=== PATIENT | male | born 1980 | race Caucasian/White ===

== ENCOUNTER 2018-02-17 20:22 | Emergency (ER) | payer SELFPAY ==
[2018-02-17] MEDS: IBUPROFEN 800 MG TABLET. PO (21:57)
[2018-02-17] MEDS: HYDROcodone/APAP 7.5/325MG 1 TAB TABLET PO (21:57)
[2018-02-17 22:13] LABS: ADD MAN DIFF? NO
[2018-02-17 22:15] LABS: BASO # 0.1 x10^3/uL (0.0-0.2); BASO % 1 % (0-3); EOS # 0.3 x10^3/uL (0.0-0.7); EOS % 3 % (0-3); HEMATOCRIT 42.6 % (39.0-53.0); HEMOGLOBIN 15.1 g/dL (13.0-17.5); LYMPH # 2.9 x10^3/uL (1.0-4.8); LYMPH % 28 % (24-48); MEAN CORPUSCULAR HEMOGLOBIN 34 pg (25-35); MEAN CORPUSCULAR HGB CONC 36 g/dL (31-37); MEAN CORPUSCULAR VOLUME 96 fL (79-100); MONO # 0.5 x10^3/uL (0.0-1.1); MONO % 5 % (0-9); NEUT # 6.5 x10^3uL (1.8-7.7); NEUT % 63 % (31-73); PLATELET COUNT 183 x10^3/uL (140-400); RED BLOOD COUNT 4.46 x10^6/uL (4.30-5.70); WHITE BLOOD COUNT 10.2 x10^3/uL (4.0-11.0)
[2018-02-17 22:26] LABS: TROPONIN BY ISTAT 0.01 ng/ml (<0.08)
[2018-02-17 22:28] LABS: ANION GAP 7 (6-14); BLOOD UREA NITROGEN 18 mg/dL (8-26); CALCIUM 9.1 mg/dL (8.5-10.1); CARBON DIOXIDE 27 mmol/L (21-32); CHLORIDE 106 mmol/L (98-107); CREATININE 1.1 mg/dL (0.7-1.3); GFR 74.9; GLUCOSE 128 mg/dL (70-99); POTASSIUM 4.1 mmol/L (3.5-5.1); SODIUM 140 mmol/L (136-145)
[2018-02-17 22:34] LABS: BILIRUBIN,URINE NEGATIVE (NEG); CLARITY,URINE CLEAR; COLOR,URINE YELLOW; GLUCOSE,URINE NEGATIVE (NEG); NITRITE,URINE NEGATIVE (NEG); PROTEIN,URINE NEGATIVE (NEG-TRACE)
[2018-02-17 22:41] LABS: AMORPHOUS SEDIMENT,UR PRESENT /HPF; BACTERIA,URINE 0 /HPF (0-FEW); RBC,URINE 0 /HPF (0-2); WBC,URINE 0 /HPF (0-4)
== END 2018-02-17 22:39 | disposition left against medical advice (07) ==
LOC: ER 20:22
DX: R03.0 Elevated blood-pressure reading, without diagnosis of hypertension (principal); R06.02 Shortness of breath; R42 Dizziness and giddiness; Z88.5 Allergy status to narcotic agent; Z88.8 Allergy status to other drugs, medicaments and biological substances
CPT/HCPCS: 36415; 71046; 80048; 81001; 84484; 85025; 93005; 99285-25

== ENCOUNTER 2018-02-26 19:35 | Emergency (ER) | payer SELFPAY ==
[2018-02-26 20:25] LABS: ADD MAN DIFF? NO
[2018-02-26 20:29] LABS: BASO # 0.1 x10^3/uL (0.0-0.2); BASO % 1 % (0-3); EOS # 0.4 x10^3/uL (0.0-0.7); EOS % 4 % (0-3); HEMATOCRIT 41.5 % (39.0-53.0); HEMOGLOBIN 14.1 g/dL (13.0-17.5); LYMPH % 18 % (24-48); MEAN CORPUSCULAR HEMOGLOBIN 33 pg (25-35); MEAN CORPUSCULAR HGB CONC 34 g/dL (31-37); MEAN CORPUSCULAR VOLUME 97 fL (79-100); MONO # 0.8 x10^3/uL (0.0-1.1); MONO % 7 % (0-9); NEUT % 71 % (31-73); PLATELET COUNT 164 x10^3/uL (140-400); RED BLOOD COUNT 4.29 x10^6/uL (4.30-5.70); RED CELL DISTRIBUTION WIDTH 13.4 % (11.5-14.5); WHITE BLOOD COUNT 11.2 x10^3/uL (4.0-11.0)
[2018-02-26 20:39] LABS: ANION GAP 6 (6-14); BLOOD UREA NITROGEN 16 mg/dL (8-26); BUN/CREATININE RATIO 18 (6-20); CALCIUM 8.7 mg/dL (8.5-10.1); CARBON DIOXIDE 25 mmol/L (21-32); CHLORIDE 106 mmol/L (98-107); CREATININE 0.9 mg/dL (0.7-1.3); GFR 94.4; GLUCOSE 111 mg/dL (70-99); POTASSIUM 3.4 mmol/L (3.5-5.1); SODIUM 137 mmol/L (136-145)
[2018-02-26 20:46] LABS: ALBUMIN 3.8 g/dL (3.4-5.0); ALBUMIN/GLOBULIN RATIO 1.1 (1.0-1.7); ALK PHOS 88 U/L (46-116); ALT (SGPT) 18 U/L (16-63); AST (SGOT) 12 U/L (15-37); TOTAL BILIRUBIN 0.6 mg/dL (0.2-1.0); TOTAL PROTEIN 7.2 g/dL (6.4-8.2)
[2018-02-26 20:51] LABS: AMPHETAMINE/METHAMPHETAMINE NEG (NEG); BARBITURATES NEG (NEG); BENZODIAZEPINES POS (NEG); CANNABINOIDS NEG (NEG); COCAINE NEG (NEG); ETHANOL, URINE NEG (NEG); METHADONE NEG (NEG); OPIATES POS (NEG); PHENCYCLIDINE NEG (NEG)
[2018-02-26] MEDS: fentaNYL PF VIAL 100 MCG/2 ML VIAL IV (20:57)
[2018-02-26] MEDS: CLINDAMYCIN 900MG PREMIX 50 ML IV (20:58)
[2018-02-26 20:59] LABS: LACTIC ACID 2.2 mmol/L (0.4-2.0)
== END 2018-02-26 21:52 | disposition home or self-care (01) ==
LOC: ER 19:35
DX: L03.116 Cellulitis of left lower limb (principal); F12.10 Cannabis abuse, uncomplicated; Z88.6 Allergy status to analgesic agent; Z88.8 Allergy status to other drugs, medicaments and biological substances
CPT/HCPCS: 36415; 80053; 80307; 83605; 85025; 96365; 96375; 99284-25; J3010; J3490

== ENCOUNTER 2018-02-27 19:54 | Emergency (ER) | payer SELFPAY | END 2018-02-27 20:52 | disposition home or self-care (01) | LOC: ER 19:54 | DX: S80.862A Insect bite (nonvenomous), left lower leg, initial encounter (principal); L03.116 Cellulitis of left lower limb; F15.10 Other stimulant abuse, uncomplicated; Z88.5 Allergy status to narcotic agent; Z88.8 Allergy status to other drugs, medicaments and biological substances; W57.XXXA Bitten or stung by nonvenomous insect and other nonvenomous arthropods, initial encounter; Y93.89 Activity, other specified; Y92.89 Other specified places as the place of occurrence of the external cause; Y99.8 Other external cause status | CPT/HCPCS: 99283 ==

== ENCOUNTER 2018-05-28 17:56 | Emergency (ER) | payer BC ==
[~2018-05-28] VITALS: Ht 175.3 cm; Wt 83.9 kg
[~2018-05-28 17:56] MED LIST: ALPR0.25 PO; CEPH-264 PO; DICL50TA4 PO; HYDR-971 PO; MUPI15CR TP; SULF1TAB24 PO
[2018-05-28 18:06] VITALS: BP 154/95
--- NOTE | 2018-05-28 18:14 | PHYS DOC ---
Past Medical History Past Medical History: Other Additional Past Medical Histor: influenza a Past Surgical History: No Surgical History Additional Past Surgical Histo: left knee x 2 Alcohol Use: None Drug Use: Cocaine, Methamphetamine Adult General Chief Complaint Chief Complaint: INSECT BITE HPI HPI Patient is a 37 year old M who presents with abscess and redness to LLQ of abdomen. Patient reports this started about 3 days ago. He denies n/v or fever. He reports he poked the area with a needle and today has had quite a bit of drainage. Review of Systems Review of Systems Constitutional: Denies fever or chills [] GI: Denies abdominal pain, nausea, vomiting Musculoskeletal: Denies back pain or joint pain [] Integument: Abscess with surrounding redness to LLQ of abdomen Neurologic: Denies focal weakness or sensory changes [] All other systems were reviewed and found to be within normal limits, except as documented in this note. Current Medications Current Medications Current Medications Medications (Trade) Dose Ordered Sig/Libra Start Time Stop Time Status Last Admin Dose Admin Clindamycin HCl (Cleocin) 450 mg 1X ONCE 05/28/18 18:15 05/28/18 18:16 DC 05/28/18 18:19 450 MG Morphine Sulfate (Morphine Sulfate) 8 mg 1X ONCE 05/28/18 18:15 05/28/18 18:16 DC 05/28/18 18:18 8 MG Ondansetron HCl (Zofran Odt) 4 mg 1X ONCE 05/28/18 18:15 05/28/18 18:16 DC 05/28/18 18:19 4 MG Allergies Allergies Allergies Coded Allergies Type Severity Reaction Last Updated Verified fluoxetine Allergy Intermediate suicidal thoughts 09/08/14 No cyclobenzaprine Adverse Reaction Intermediate "makes me angry" 09/08/14 No ketorolac Adverse Reaction Intermediate "makes me angry" 09/08/14 No tramadol Adverse Reaction Intermediate "makes me angry" 09/08/14 No Physical Exam Physical Exam Constitutional: Well developed, well nourished, no acute distress, non-toxic appearance. [] HENT: Normocephalic, atraumatic Eyes: PERRLA, EOMI, conjunctiva normal, no discharge. [] Neck: Normal range of motion, no tenderness, supple, no stridor. [] Cardiovascular:Heart rate regular rhythm, no murmur [] Lungs & Thorax: Bilateral breath sounds clear to auscultation [] Skin: Warm, dry. Abscess with mild induration and surrounding erythema, warmth to touch to left lower quadrant of abdominal wall. Draining freely. Neurologic: Alert and oriented X 3, normal motor function, normal sensory function, no focal deficits noted. [] Psychologic: Affect normal, judgement normal, mood normal. [] Current Patient Data Vital Signs Vital Signs Date Time Temp Pulse Resp B/P (MAP) Pulse Ox O2 Delivery O2 Flow Rate FiO2 05/28/18 18:06 98.4 89 18 154/95 (114) 98 Room Air 98.4 EKG EKG [] Radiology/Procedures Radiology/Procedures [] Course & Med Decision Making Course & Med Decision Making Pertinent Labs and Imaging studies reviewed. (See chart for details) No need for additional incision. Wound is draining freely at this time. Mild induration does not suggest deep, loculated wound. Plan: warm compresses, clindamycin rx, lortab rx, f/u with PCP, return precautions reviewed, wound edges marked. Dragon Disclaimer Dragon Disclaimer This electronic medical record was generated, in whole or in part, using a voice recognition dictation system. Departure Departure Impression: Primary Impression: Cellulitis of left abdominal wall Additional Impression: Abscess of abdominal wall Disposition: 01 HOME, SELF-CARE Condition: STABLE Referrals: NO PCP (PCP) Patient Instructions: Abscess, Care After, Cellulitis Scripts Hydrocodone/Apap 5-325 (NORCO 5-325 TABLET) 1 Each Tablet 1-2 TAB PO PRN Q6HRS PRN for PAIN, #20 TAB 0 Refills Prov: JACK VIZCAINO APRN 05/28/18 Clindamycin Hcl (CLINDAMYCIN HCL) 150 Mg Capsule 3 CAP PO TID for 10 Days, #90 CAP Prov: JACK VIZCAINO APRN 05/28/18 Problem Qualifiers JACK VIZCAINO APRN May 28, 2018 18:14
[2018-05-28] MEDS ORDERED: CLINDAMYCIN HCL 150 MG CAPSULE. PO ONE (18:15)
[2018-05-28] MEDS ORDERED: MORPHINE SULFATE 10 MG/ML VIAL. IM ONE (18:15)
[2018-05-28] MEDS ORDERED: ONDANSETRON ODT 4 MG TAB.RAPDIS. PO ONE (18:15)
[2018-05-28] MEDS ORDERED: CLIN150C14 PO (18:18)
[2018-05-28] MEDS ORDERED: HYDR-971 PO (18:18)
== END 2018-05-28 18:32 | disposition home or self-care (01) ==
LOC: ER 17:56
DX: L02.211 Cutaneous abscess of abdominal wall (principal); L03.311 Cellulitis of abdominal wall; Z88.5 Allergy status to narcotic agent; Z88.8 Allergy status to other drugs, medicaments and biological substances
CPT/HCPCS: 96372; 99283; J2270; Q0162

== ENCOUNTER 2019-01-20 14:08 | Emergency (ER) | payer BC, SELFPAY ==
[~2019-01-20] VITALS: Ht 170.2 cm; Wt 83.9 kg
[~2019-01-20 14:08] MED LIST changes: +CLIN150C14 PO; +HYDR-3164 PO; -HYDR-971 PO
[2019-01-20 14:36] VITALS: BP 144/86
--- NOTE | 2019-01-20 14:39 | PHYS DOC ---
Past Medical History Past Medical History: Other Additional Past Medical Histor: influenza a Past Surgical History: No Surgical History Additional Past Surgical Histo: left knee x 2 Smoking: Cigarettes, Less than 1pk/day Alcohol Use: None Drug Use: Cocaine, Methamphetamine Adult General Chief Complaint Chief Complaint: UPPER EXTREMITY PAIN HPI HPI Patient is a 38 year old who presents shoulder pain has been ongoing for year. He followed up with orthopedic doctor and they wanted to get a MRI but the patient was unable for the MRI. The patient states that it is in the left shoulder and his range of motion is continuing to reduce in that shoulder. Has been taking Tylenol and ibuprofen at home and states that is not working. Rates his pain 10 out of 10 states it throbs. Review of Systems Review of Systems Constitutional: Denies fever or chills [] Eyes: Denies change in visual acuity, redness, or eye pain [] HENT: Denies nasal congestion or sore throat [] Respiratory: Denies cough or shortness of breath [] Cardiovascular: No additional information not addressed in HPI [] GI: Denies abdominal pain, nausea, vomiting, bloody stools or diarrhea [] : Denies dysuria or hematuria [] Musculoskeletal: Denies back pain or joint pain with exception L shoulder. Integument: Denies rash or skin lesions [] Neurologic: Denies headache, focal weakness or sensory changes [] Endocrine: Denies polyuria or polydipsia [] Complete systems were reviewed and found to be within normal limits, except as documented in this note. Current Medications Current Medications Current Medications Medications (Trade) Dose Ordered Sig/Libra Start Time Stop Time Status Last Admin Dose Admin Acetaminophen/ Hydrocodone Bitart (Lortab 5/325) 1 tab 1X ONCE 01/20/19 14:45 01/20/19 14:46 Allergies Allergies Allergies Coded Allergies Type Severity Reaction Last Updated Verified fluoxetine Allergy Intermediate suicidal thoughts 09/08/14 No cyclobenzaprine Adverse Reaction Intermediate "makes me angry" 09/08/14 No ketorolac Adverse Reaction Intermediate "makes me angry" 09/08/14 No tramadol Adverse Reaction Intermediate "makes me angry" 09/08/14 No Physical Exam Physical Exam Constitutional: Well developed, well nourished, no acute distress, non-toxic appearance. [] HENT: Normocephalic, atraumatic, bilateral external ears normal, oropharynx moist, no oral exudates, nose normal. [] Eyes: PERRLA, EOMI, conjunctiva normal, no discharge. [] Neck: Normal range of motion, no tenderness, supple, no stridor. [] Cardiovascular:Heart rate regular rhythm, no murmur [] Lungs & Thorax: Bilateral breath sounds clear to auscultation [] Abdomen: Bowel sounds normal, soft, no tenderness, no masses, no pulsatile masses. [] Skin: Warm, dry, no erythema, no rash. [] Back: No tenderness, no CVA tenderness. [] Extremities: No tenderness, no cyanosis, no clubbing, ROM intact, no edema. With exception of L arm, ROM is reduced. Neurologic: Alert and oriented X 3, normal motor function, normal sensory function, no focal deficits noted. [] Psychologic: Affect normal, judgement normal, mood normal. [] EKG EKG [] Radiology/Procedures Radiology/Procedures [] Course & Med Decision Making Course & Med Decision Making Pertinent Labs and Imaging studies reviewed. (See chart for details) Offered patient xray of shoulder and he declined. Will refer him to Orthopedics and discharge the patient home. Dragon Disclaimer Dragon Disclaimer This electronic medical record was generated, in whole or in part, using a voice recognition dictation system. Departure Departure Impression: Primary Impression: Shoulder pain Disposition: 01 HOME, SELF-CARE Condition: STABLE Referrals: NO PCP (PCP) ARIELLE SIMPSON II, MD Additional Instructions: Please follow up with Orthopedics. Problem Qualifiers Primary Impression: Shoulder pain Chronicity: acute Laterality: left Qualified Codes: M25.512 - Pain in left shoulder CALI CHAPPELL LAYOUT ARTIST January 20, 2019 14:39
[2019-01-20] MEDS ORDERED: HYDROcodone/APAP 5/325MG 1 TAB TABLET PO ONE (14:45)
== END 2019-01-20 15:01 | disposition home or self-care (01) ==
LOC: ER 14:08
DX: M25.512 Pain in left shoulder (principal); F17.210 Nicotine dependence, cigarettes, uncomplicated; Z88.8 Allergy status to other drugs, medicaments and biological substances; Z88.5 Allergy status to narcotic agent
CPT/HCPCS: 99282

== ENCOUNTER 2021-03-04 17:59 | Inpatient (IN) | payer OTHER ==
[~2021-03-04] VITALS: Ht 182.9 cm; Wt 89.8 kg
[~2021-03-04 17:59] MED LIST changes: -CLIN150C14 PO; +CLIN150C15 PO; +HYDR-2761 PO
[2021-03-04] MEDS ORDERED: VECURONIUM BOLUS 10 MG VIAL. IV ONE (19:00)
[2021-03-04] MEDS ORDERED: methylPREDNISolone SOD SUCC PF 125 MG/2 ML VIAL. IV ONE (19:00)
[2021-03-04] MEDS ORDERED: NALOXONE 0.4 MG/ML VIAL. IV ONE (19:00)
[2021-03-04 19:06] LABS: BASE EXCESS ABG -9 mmol/L (-3-3); HCO3 ABG 23 mmol/L (21-28); PO2 ABG 365 mmHg (75-108); SAT O2 ABG 99 % (92-99)
[2021-03-04 19:12] LABS: FIO2 ABG 8L; PCO2 ABG 75 mmHg (35-46)
[2021-03-04 20:21] LABS: BASO % 0 % (0-3); EOS % 0 % (0-3); HEMATOCRIT 44.6 % (39.0-53.0); HEMOGLOBIN 15.2 g/dL (13.0-17.5); LYMPH # 1.8 x10^3/uL (1.0-4.8); LYMPH % 21 % (24-48); MEAN CORPUSCULAR HEMOGLOBIN 33 pg (25-35); MEAN CORPUSCULAR HGB CONC 34 g/dL (31-37); MEAN CORPUSCULAR VOLUME 96 fL (79-100); MONO # 0.7 x10^3/uL (0.0-1.1); MONO % 8 % (0-9); NEUT # 6.3 x10^3/uL (1.8-7.7); NEUT % 71 % (31-73); PLATELET COUNT 90 x10^3/uL (140-400); RED BLOOD COUNT 4.64 x10^6/uL (4.30-5.70); RED CELL DISTRIBUTION WIDTH 13.9 % (11.5-14.5); WHITE BLOOD COUNT 8.9 x10^3/uL (4.0-11.0)
[2021-03-04 20:30] LABS: DIRECT BILIRUBIN 0.3 mg/dL (0.0-0.2); MAGNESIUM 2.4 mg/dL (1.8-2.4); PHOSPHORUS 2.4 mg/dL (2.6-4.7); TOTAL BILIRUBIN 0.8 mg/dL (0.2-1.0); TOTAL PROTEIN 5.6 g/dL (6.4-8.2)
[2021-03-04 21:19] LABS: BILIRUBIN,URINE NEGATIVE (NEG); CLARITY,URINE TURBID; COLOR,URINE YELLOW; NITRITE,URINE NEGATIVE (NEG); PH,URINE 5.5 (<5.0-8.0); PROTEIN,URINE 30 mg/dL (NEG-TRACE); UROBILINOGEN,URINE 0.2 mg/dL (0.2 mg/dL)
[2021-03-04] MEDS: IV DEXTROSE 5% 1,000 ML IV SCH (21:33)
[2021-03-04 21:36] LABS: BACTERIA,URINE FEW /HPF (0-FEW); RBC,URINE OCC /HPF (0-2)
[2021-03-04 21:37] LABS: GRANULAR CASTS,URINE FEW /HPF; HYALINE CASTS, URINE FEW /HPF
[2021-03-04] MEDS ORDERED: DESMOPRESSIN 4 MCG/ML AMPUL. IV ONE ×2 (22:30)
[2021-03-04] MEDS ORDERED: LABETALOL 20 MG/4 ML DISP.SYRIN. IVP ONE (22:30)
[2021-03-05 00:29] LABS: HEMATOCRIT 42.8 % (39.0-53.0); HEMOGLOBIN 14.5 g/dL (13.0-17.5); RED BLOOD COUNT 4.43 x10^6/uL (4.30-5.70); RED CELL DISTRIBUTION WIDTH 14.3 % (11.5-14.5); WHITE BLOOD COUNT 8.6 x10^3/uL (4.0-11.0)
[2021-03-05 01:04] LABS: ALBUMIN 2.7 g/dL (3.4-5.0); DIRECT BILIRUBIN 0.2 mg/dL (0.0-0.2); MAGNESIUM 2.3 mg/dL (1.8-2.4); PHOSPHORUS 2.8 mg/dL (2.6-4.7); PROTHROMBIN TIME PATIENT 15.4 SEC (11.7-14.0); TOTAL BILIRUBIN 0.5 mg/dL (0.2-1.0); TOTAL PROTEIN 5.5 g/dL (6.4-8.2)
--- NOTE | 2021-03-05 01:21 | RAD ---
INDICATION: Reason: post-bronchoscopy / Spl. Instructions: / History: COMPARISON: March 03, 2021 FINDINGS: Single view of chest obtained. Endotracheal tube near thoracic inlet. Right-sided vascular catheter with tip projecting over the SVC . Enteric tube is seen coursing below the diaphragm. Cardiac silhouette is not enlarged. Mild hazy opacities bilaterally appear slightly decreased from prior IMPRESSION: * Lines and tubes as above. * Slight decrease in the multifocal opacities throughout the bilateral lungs compared to prior exami [facility], [place]. Electronically signed by: Larry Ware MD (03/05/2021 1:19 AM) [id number]
[2021-03-05 06:48] LABS: HEMATOCRIT 38.9 % (39.0-53.0); HEMOGLOBIN 13.2 g/dL (13.0-17.5); RED BLOOD COUNT 4.07 x10^6/uL (4.30-5.70); WHITE BLOOD COUNT 8.5 x10^3/uL (4.0-11.0)
[2021-03-05 07:04] LABS: PROTHROMBIN TIME PATIENT 15.9 SEC (11.7-14.0)
[2021-03-05 07:31] LABS: ALBUMIN 2.5 g/dL (3.4-5.0); DIRECT BILIRUBIN 0.2 mg/dL (0.0-0.2); MAGNESIUM 2.2 mg/dL (1.8-2.4); PHOSPHORUS 1.6 mg/dL (2.6-4.7); TOTAL BILIRUBIN 0.6 mg/dL (0.2-1.0)
[2021-03-05] MEDS ORDERED: LABETALOL 20 MG/4 ML DISP.SYRIN. IVP ONE (07:45)
[2021-03-05 08:12] LABS: CALCIUM 8.5 mg/dL (8.5-10.1); CREATININE 1.2 mg/dL (0.7-1.3); GFR 66.7
[2021-03-05] MEDS ORDERED: PIPERACILLIN/TAZOBACTAM 3.375 GM in IV NORMAL SALINE 50ML 50 ML IV ONE (08:30)
--- NOTE | 2021-03-05 09:47 | EKG ---
[facility] [address] [place] [address] Test Date: 2021-03-05 Test Time: 09:44:17 Pat Name: JEAN MARIE NICHOLE Department: Room: 107 1 Gender: M Leacher: CHUCK : 1980 Requested By: [place] [employer] Order Number: [id number] Reading MD: Measurements Intervals [place] Rate: 102 P: 71 [place]: 122 QRS: 79 QRSD: 88 T: 49 QT: 312 QTc: 411 Interpretive Statements SINUS TACHYCARDIA OTHERWISE NORMAL ECG RI6.02 Compared to ECG 03/03/2021 04:55:58 No significant changes
[2021-03-05] MEDS ORDERED: INSULIN LISPRO 300 UNITS/3 ML VIAL. SQ ONE (12:00)
[2021-03-05] MEDS: PIPERACILLIN/TAZOBACTAM 3.375 GM in IV NORMAL SALINE 50ML 50 ML IV SCH ×3 (12:02→23:51)
[2021-03-05 12:12] LABS: BASO % 0 % (0-3); EOS % 0 % (0-3); HEMATOCRIT 38.5 % (39.0-53.0); HEMOGLOBIN 13.1 g/dL (13.0-17.5); LYMPH # 0.9 x10^3/uL (1.0-4.8); LYMPH % 10 % (24-48); MEAN CORPUSCULAR HEMOGLOBIN 33 pg (25-35); MEAN CORPUSCULAR HGB CONC 34 g/dL (31-37); MEAN CORPUSCULAR VOLUME 96 fL (79-100); MONO # 0.3 x10^3/uL (0.0-1.1); MONO % 4 % (0-9); NEUT # 8.3 x10^3/uL (1.8-7.7); NEUT % 87 % (31-73); PLATELET COUNT 86 x10^3/uL (140-400); RED BLOOD COUNT 4.02 x10^6/uL (4.30-5.70); RED CELL DISTRIBUTION WIDTH 13.7 % (11.5-14.5); WHITE BLOOD COUNT 9.6 x10^3/uL (4.0-11.0)
[2021-03-05 12:22] LABS: PROTHROMBIN TIME PATIENT 15.2 SEC (11.7-14.0)
--- NOTE | 2021-03-05 12:26 | RAD ---
Exam Date: 03/05/2021 11:36 AM XR CHEST 1V Indication: Reason: Vent, pre-op organ harvesting / Spl. Instructions: / History: . Comparison: March 04, 2021 FINDINGS/ IMPRESSION: Support lines and tubes remain in place. The cardiac silhouette and pulmonary vasculature are within normal limits. There is no focal consolidation, pleural effusion or pneumothorax. The visualized osseous structures are intact. Electronically signed by: Clay Rubio MD (03/05/2021 12:24 PM) [facility]
[2021-03-05 12:33] LABS: ALBUMIN 2.6 g/dL (3.4-5.0); DIRECT BILIRUBIN 0.2 mg/dL (0.0-0.2); MAGNESIUM 2.3 mg/dL (1.8-2.4); PHOSPHORUS 2.2 mg/dL (2.6-4.7); TOTAL BILIRUBIN 0.6 mg/dL (0.2-1.0); TOTAL PROTEIN 5.2 g/dL (6.4-8.2)
[2021-03-05] MEDS ORDERED: HEPARIN for ARTERIAL LINE 1,500 ML ONE (13:50)
[2021-03-05] MEDS ORDERED: IODIXANOL 320 MG/ML 100 ML VIAL. ONE (13:50)
[2021-03-05] MEDS ORDERED: LIDOCAINE 1% PF 2 ML VIAL. ONE (13:50)
[2021-03-05] MEDS ORDERED: VERAPAMIL 5 MG/2 ML VIAL. ONE (14:00)
[2021-03-05] MEDS ORDERED: LIDOCAINE 1% Multi-Dose 20 ML VIAL. ONE (14:36)
--- NOTE | 2021-03-05 15:29 | CARD ---
MR#: [id number] Date of Study: 03/05/2021 Ordering Physician: YEN BAKER, Referring Physician: Idania HENSON: Fady Nino [facility] APPROVED REPORT EXAM: Two-dimensional and M-mode echocardiogram with Doppler and color Doppler. Other Information Quality : FairHR: 100bpm Rhythm : NSR INDICATION Transplant donor evaluation RISK FACTORS Polysubstance abuse LEFT VENTRICLE The left ventricle is normal size. There is normal left ventricular wall thickness. The left ventricu lar systolic function is normal and the ejection fraction is within normal range. EF 55% There is nor mal LV segmental wall motion. Transmitral Doppler flow pattern is Grade I-abnormal relaxation pattern . No left ventricle thrombus noted on this study. There is no ventricular septal defect visualized. T here is no left ventricular aneurysm. There is no mass noted in the left ventricle. RIGHT VENTRICLE The right ventricle is normal size. There is normal right ventricular wall thickness. The right ventr icular systolic function is normal. ATRIA The left atrium size is normal. The right atrium size is normal. The interatrial septum is intact wit h no evidence for an atrial septal defect or patent foramen ovale as noted on 2-D or Doppler imaging. AORTIC VALVE The aortic valve is normal in structure and function. Doppler and Color Flow revealed no significant aortic regurgitation. There is no significant aortic valvular stenosis. There is no aortic valvular v egetation. MITRAL VALVE The mitral valve is normal in structure and function. There is no evidence of mitral valve prolapse. There is no mitral valve stenosis. Doppler and Color Flow revealed no mitral valve regurgitation note d. TRICUSPID VALVE The tricuspid valve is normal in structure and function. Doppler and Color Flow revealed trace tricus pid regurgitation. There is no tricuspid valve prolapse or vegetation. There is no tricuspid valve st enosis. PULMONIC VALVE Doppler and Color Flow revealed no pulmonic valvular regurgitation. There is no pulmonic valvular adelita nosis. GREAT VESSELS The aortic root is normal in size. The ascending aorta is normal in size. The IVC is normal in size a nd collapses >50% with inspiration. PERICARDIAL EFFUSION There is no pleural effusion. There is no evidence of significant pericardial effusion. Critical Notification Critical Value: No <Conclusion> The left ventricular systolic function is normal and the ejection fraction is within normal range. EF 55% There is normal LV segmental wall motion. Transmitral Doppler flow pattern is Grade I-abnormal relaxation pattern. No significant valvular disease. Signed by : Graham Peters, Electronically Approved : 03/05/2021 15:28:48
[2021-03-05] MEDS ORDERED: IODIXANOL 320 MG/ML 100 ML VIAL. IART ONE (15:30)
[2021-03-05] MEDS ORDERED: LIDOCAINE 1% Multi-Dose 20 ML VIAL. INJ ONE (15:30)
--- NOTE | 2021-03-05 15:51 | CARD ---
MR#: [id number] Date of Study: 03/05/2021 Ordering Physician: ROCIO PETERS, Referring Physician: ROCIO PETERS, Tech: Sylvie Washington RT(R)() APPROVED REPORT Technologist: Sylvie Washington RT(R)() Nurse: Zohreh Suazo RN Procedure(s) performed: FLUORO TIME: 6.3 MIN DOSE: 34 Gycm2 Contrast: 86ml LHC, Coronary angiography, Left ventriculogram RHC PROCEDURE NARRATIVE Clinical information: 40-year-old male [facility] was obtained by the transplant network to the patient's family. Procedure details: The left groin was prepped and draped in usual sterile fashion. Under 1% lidocaine local anesthesia a 6 [place] sheath was placed in the left common femoral artery via the modified Seldinger technique. Next a 8 [place] sheath was placed in the left common femoral vein. Next diagnostic angiography was performed with a 6 [place] JL4 and JR4 catheters. Left ventricular end-diastolic pressure was obtaine d with a pigtail catheter and a pullback was performed after left ventriculography. A 7.5 [place] PA catheter was advanced to the right heart chambers and pressures and saturations and cardiac outputs w ere obtained. At case completion all catheters and wires were removed and hemostasis was achieved in the left groin via an Angio-Seal device for the left common femoral artery and manual compression fo r the left common femoral vein. No acute complications are noted. Findings: Hemodynamics: RA 12 mmHg RV 45/5/11 PA 42/17/30 Wedge 16 mmHg Left and right PA saturation 91%, RV saturation 91% FA saturation 99% Brendan cardiac output: Calculated at 20 L/min likely overestimated due to patient being on high flow ox ygen with 100% FiO2 Thermodilution cardiac output: 10 L/min LVEDP 17 mmHg No LV to aortic pullback gradient Left ventriculogram: EF 55% without any significant wall motion abnormalities and no evidence of aort ic or mitral insufficiency. Coronary angiography: Left main is a very short caliber vessel without any significant disease with near separate ostia of the LAD and circumflex LAD is a moderate caliber vessel with normal angiographic appearance Left circumflex is a large caliber dominant vessel with normal angiographic appearance L PDA is a small to moderate caliber vessel with normal angiographic appearance RCA is a small caliber nondominant vessel with normal angiographic appearance Conclusion 1. Mildly elevated biventricular filling pressures 2. Mild pulmonary hypertension, mean PA 30 mmHg, PVR WNL 3. High cardiac output 4. Normal LV systolic function, EF 55% 5. Normal angiographic appearance of the coronary arteries in a left dominant system Recommendations Per [place] transplant network. Signed by : Rocio Peters, Electronically Approved : 03/05/2021 15:50:45
[2021-03-05] MEDS ORDERED: NORMAL SALINE IV ONE (16:15)
[2021-03-05] MEDS ORDERED: DESMOPRESSIN IV ONE (16:15)
[2021-03-05] MEDS ORDERED: DESMOPRESSIN 4 MCG/ML AMPUL. IV ONE (16:30)
[2021-03-05] MEDS: IV DEXTROSE 5% 1,000 ML IV SCH ×2 (16:49→20:20)
[2021-03-05] MEDS ORDERED: VANCOMYCIN 1 GM in IV NORMAL SALINE 250ML 250 ML IV ONE (17:00)
[2021-03-05 17:06] LABS: ISTAT BE VENOUS -1 mmol/L (0-3); ISTAT HCO3 VEN 25 mmol/L (24-28); ISTAT PCO2 VEN 46 mmHg (41-51); ISTAT PH VEN 7.34 (7.32-7.42); ISTAT PO2 VEN 209 mmHg (20-40); ISTAT SAT O2 VEN 100 %; ISTAT TCO2 VEN 26 mmol/L (21-32)
[2021-03-05 17:57] LABS: BASO % 0 % (0-3); EOS % 0 % (0-3); HEMATOCRIT 33.5 % (39.0-53.0); HEMOGLOBIN 11.3 g/dL (13.0-17.5); LYMPH % 13 % (24-48); MEAN CORPUSCULAR HEMOGLOBIN 32 pg (25-35); MEAN CORPUSCULAR HGB CONC 34 g/dL (31-37); MEAN CORPUSCULAR VOLUME 96 fL (79-100); MONO # 0.4 x10^3/uL (0.0-1.1); MONO % 5 % (0-9); NEUT # 6.4 x10^3/uL (1.8-7.7); NEUT % 82 % (31-73); PLATELET COUNT 73 x10^3/uL (140-400); WHITE BLOOD COUNT 7.8 x10^3/uL (4.0-11.0)
[2021-03-05 18:09] LABS: PROTHROMBIN TIME PATIENT 15.2 SEC (11.7-14.0)
[2021-03-05 18:14] LABS: ALBUMIN 2.4 g/dL (3.4-5.0); DIRECT BILIRUBIN 0.2 mg/dL (0.0-0.2); MAGNESIUM 2.4 mg/dL (1.8-2.4); PHOSPHORUS 1.4 mg/dL (2.6-4.7); TOTAL BILIRUBIN 0.7 mg/dL (0.2-1.0); TOTAL PROTEIN 4.8 g/dL (6.4-8.2)
[2021-03-05] MEDS ORDERED: ALBUMIN HUMAN 25% 100 ML IV ONE (20:00)
[2021-03-05] MEDS: POTASSIUM PHOS,M-BASIC-D-BASIC 10 MMOL in IV NORMAL SALINE 100ML 100 ML IV SCH ×4 (20:13→23:45)
[2021-03-05] MEDS ORDERED: FUROSEMIDE 40 MG/4 ML VIAL. IVP ONE (22:00)
[2021-03-05] MEDS ORDERED: hydrALAZINE 20 MG/ML VIAL. IVP ONE (23:30)
[2021-03-06 00:08] LABS: BASO % 0 % (0-3); EOS % 0 % (0-3); HEMATOCRIT 33.2 % (39.0-53.0); HEMOGLOBIN 11.4 g/dL (13.0-17.5); LYMPH # 0.8 x10^3/uL (1.0-4.8); LYMPH % 8 % (24-48); MEAN CORPUSCULAR HEMOGLOBIN 33 pg (25-35); MEAN CORPUSCULAR HGB CONC 34 g/dL (31-37); MEAN CORPUSCULAR VOLUME 95 fL (79-100); MONO # 0.2 x10^3/uL (0.0-1.1); MONO % 3 % (0-9); NEUT # 8.6 x10^3/uL (1.8-7.7); NEUT % 89 % (31-73); PLATELET COUNT 76 x10^3/uL (140-400); RED CELL DISTRIBUTION WIDTH 13.9 % (11.5-14.5); WHITE BLOOD COUNT 9.6 x10^3/uL (4.0-11.0)
[2021-03-06 00:23] LABS: ALBUMIN 2.9 g/dL (3.4-5.0); DIRECT BILIRUBIN 0.2 mg/dL (0.0-0.2); PHOSPHORUS 2.6 mg/dL (2.6-4.7); TOTAL BILIRUBIN 0.6 mg/dL (0.2-1.0); TOTAL PROTEIN 6.1 g/dL (6.4-8.2)
[2021-03-06 00:24] LABS: PROTHROMBIN TIME PATIENT 14.7 SEC (11.7-14.0)
[2021-03-06] MEDS ORDERED: ALBUMIN HUMAN 5% 500 ML IV ONE (01:45)
[2021-03-06 02:06] LABS: HEMOGLOBIN A1C 5.3 % (4.8-5.6)
[2021-03-06] MEDS ORDERED: LABETALOL 20 MG/4 ML DISP.SYRIN. IVP ONE (03:15)
[2021-03-06] MEDS ORDERED: hydrALAZINE 20 MG/ML VIAL. IVP ONE (04:45)
[2021-03-06 06:08] LABS: BASO % 0 % (0-3); EOS % 0 % (0-3); HEMATOCRIT 30.9 % (39.0-53.0); HEMOGLOBIN 10.5 g/dL (13.0-17.5); LYMPH # 0.8 x10^3/uL (1.0-4.8); LYMPH % 9 % (24-48); MEAN CORPUSCULAR HEMOGLOBIN 33 pg (25-35); MEAN CORPUSCULAR HGB CONC 34 g/dL (31-37); MEAN CORPUSCULAR VOLUME 96 fL (79-100); MONO # 0.3 x10^3/uL (0.0-1.1); MONO % 4 % (0-9); NEUT % 88 % (31-73); PLATELET COUNT 65 x10^3/uL (140-400); RED BLOOD COUNT 3.22 x10^6/uL (4.30-5.70); RED CELL DISTRIBUTION WIDTH 14.3 % (11.5-14.5); WHITE BLOOD COUNT 9.1 x10^3/uL (4.0-11.0)
[2021-03-06] MEDS: PIPERACILLIN/TAZOBACTAM 3.375 GM in IV NORMAL SALINE 50ML 50 ML IV SCH ×2 (06:09→16:03)
[2021-03-06 06:19] LABS: PROTHROMBIN TIME PATIENT 15.9 SEC (11.7-14.0)
[2021-03-06 06:23] LABS: ALBUMIN 3.2 g/dL (3.4-5.0); DIRECT BILIRUBIN 0.2 mg/dL (0.0-0.2); MAGNESIUM 2.1 mg/dL (1.8-2.4); TOTAL BILIRUBIN 0.6 mg/dL (0.2-1.0); TOTAL PROTEIN 5.6 g/dL (6.4-8.2)
[2021-03-06] MEDS: POTASSIUM PHOS,M-BASIC-D-BASIC 10 MMOL in IV NORMAL SALINE 100ML 100 ML IV SCH ×3 (06:46→09:42)
[2021-03-06] MEDS ORDERED: VANCOMYCIN PER PHARMACY MC PRN (08:00)
[2021-03-06] MEDS ORDERED: DESMOPRESSIN 4 MCG/ML AMPUL. IV PRN (08:15)
[2021-03-06] MEDS: hydrALAZINE 20 MG/ML VIAL. IVP PRN ×2 (08:22→14:18)
--- NOTE | 2021-03-06 08:40 | RAD ---
EXAM: CHEST ONE VIEW. HISTORY: Organ donation. COMPARISON: 03/05/2021. FINDINGS: A frontal view of the chest is obtained. An endotracheal tube has its tip 6 cm above the ca suly. A right internal jugular central venous catheter has its tip in the superior cavoatrial junctio n. A nasogastric tube has its tip below the inferior margin of the view. There are no confluent infiltrates. There is no pneumothorax or pleural effusion. The heart is not en larged. IMPRESSION: 1. No confluent infiltrates. Electronically signed by: Klarissa Lyman MD (03/06/2021 8:38 AM) [id number]
[2021-03-06] MEDS ORDERED: VANCOMYCIN 1.5 GM in IV NORMAL SALINE 500ML BAG 500 ML IV SCH (09:00)
--- NOTE | 2021-03-06 11:09 | CARD ---
MR#: [id number] Date of Study: 03/06/2021 Ordering Physician: YEN BAKER, Referring Physician: YEN BAKER Tech: Fady carter [facility] APPROVED REPORT EXAM: LIMITED Two-dimensional and M-mode echocardiogram with Doppler and color Doppler. Other Information Quality : AverageHR: 117bpm Rhythm : NSR INDICATION 2D DIMENSIONS IVSd0.9 (0.7-1.1cm)LVDd4.1 (3.9-5.9cm) PWd1.0 (0.7-1.1cm)LVDs2.1 (2.5-4.0cm) FS (%) 49.6 %SV59.6 ml LVEF(%)81.4 (>50%) Tricuspid Valve TR P. [id number] Peak Gr.37mmHg LEFT VENTRICLE The left ventricle is normal size. There is normal left ventricular wall thickness. The left ventricu lar systolic function is normal. The ejection fraction is 60-65%. There is normal LV segmental wall m otion. No left ventricle thrombus noted on this study. There is no ventricular septal defect visualiz ed. There is no left ventricular aneurysm. There is no mass noted in the left ventricle. RIGHT VENTRICLE The right ventricle is normal size. There is normal right ventricular wall thickness. The right ventr icular systolic function is normal. ATRIA The left atrium size is normal. The right atrium size is normal. The interatrial septum is intact wit h no evidence for an atrial septal defect or patent foramen ovale as noted on 2-D or Doppler imaging. AORTIC VALVE The aortic valve is normal in structure and function. Doppler and Color Flow revealed no significant aortic regurgitation. There is no significant aortic valvular stenosis. There is no aortic valvular v egetation. MITRAL VALVE The mitral valve is normal in structure and function. There is no evidence of mitral valve prolapse. There is no mitral valve stenosis. Doppler and Color Flow revealed no mitral valve regurgitation note d. TRICUSPID VALVE The tricuspid valve is normal in structure and function. Doppler and Color Flow revealed no tricuspid valve regurgitation noted. There is no tricuspid valve prolapse or vegetation. There is no tricuspid valve stenosis. GREAT VESSELS The aortic root is normal in size. The IVC is normal in size and collapses >50% with inspiration. PERICARDIAL EFFUSION There is no pleural effusion. There is no evidence of significant pericardial effusion. <Conclusion> The left ventricular systolic function is normal. The ejection fraction is 60-65%. There is normal LV segmental wall motion. There is no evidence of significant pericardial effusion. Signed by : Raymundo Espino, Electronically Approved : 03/06/2021 11:09:23
--- NOTE | 2021-03-06 11:36 | RAD ---
EXAM: Chest, single view. HISTORY: Organ transplant. COMPARISON: 03/06/2021. FINDINGS: A frontal view of the chest is obtained. There is no endotracheal tube within the trachea. There is nasogastric tube within the stomach. There is a right internal jugular catheter with the tip in the superior cavoatrial junction. There is mild stable diffuse interstitial prominence. No consol idation, pleural effusion or pneumothorax is seen. The heart is normal in size. IMPRESSION: 1. Stable support lines and tubes. 2. Stable mild diffuse interstitial prominence. Electronically signed by: Naima Alexander MD (03/06/2021 11:33 AM) [id number]
[2021-03-06 12:12] LABS: BILIRUBIN,URINE NEGATIVE (NEG); CLARITY,URINE TURBID; COLOR,URINE YELLOW; NITRITE,URINE NEGATIVE (NEG); PROTEIN,URINE 30 mg/dL (NEG-TRACE); UROBILINOGEN,URINE 0.2 mg/dL (0.2 mg/dL)
[2021-03-06 12:40] LABS: BACTERIA,URINE FEW /HPF (0-FEW)
[2021-03-06 12:41] LABS: AMORPHOUS SEDIMENT,UR PRESENT /HPF
[2021-03-06 14:18] VITALS: BP 196/92
[2021-03-06 15:06] LABS: BASO % 0 % (0-3); EOS % 0 % (0-3); HEMOGLOBIN 10.1 g/dL (13.0-17.5); LYMPH # 0.9 x10^3/uL (1.0-4.8); LYMPH % 9 % (24-48); MEAN CORPUSCULAR HEMOGLOBIN 32 pg (25-35); MEAN CORPUSCULAR HGB CONC 34 g/dL (31-37); MEAN CORPUSCULAR VOLUME 96 fL (79-100); MONO # 0.5 x10^3/uL (0.0-1.1); MONO % 5 % (0-9); NEUT % 86 % (31-73); PLATELET COUNT 66 x10^3/uL (140-400); RED BLOOD COUNT 3.12 x10^6/uL (4.30-5.70); RED CELL DISTRIBUTION WIDTH 14.2 % (11.5-14.5); WHITE BLOOD COUNT 10.4 x10^3/uL (4.0-11.0)
--- NOTE | 2021-03-06 18:00 | NUR ---
Patient transported to OR at this time with OR staff and [facility] staff. Family in hallway for honor walk.
[2021-03-06] MEDS ORDERED: ROCURONIUM 100 MG/10 ML VIAL. ONE (18:22)
[2021-03-06] MEDS ORDERED: LIDOCAINE 2% TOPICAL JELLY 5GM TUBE. TP ONE (18:56)
[2021-03-06] MEDS ORDERED: FUROSEMIDE 20 MG/2 ML VIAL. ONE (19:17)
[2021-03-06] MEDS ORDERED: FUROSEMIDE 40 MG/4 ML VIAL. ONE (19:17)
[2021-03-06] MEDS ORDERED: PHENYLEPHRINE in 0.9% NACL PF 1 MG/10 ML SYRINGE. IV ONE (19:53)
== END 2021-03-07 07:00 | DRG 983 ==
LOC: 1 WEST ICU 17:59 → MERGE 17:59
PROC: 5A1945Z Respiratory Ventilation, 24-96 Consecutive Hours (ICD-10-PCS; 2021-03-04)
PROC: 0BH17EZ Insertion of Endotracheal Airway into Trachea, Via Natural or Artificial Opening (ICD-10-PCS; 2021-03-04)
PROC: 4A023N8 Measurement of Cardiac Sampling and Pressure, Bilateral, Percutaneous Approach (ICD-10-PCS; 2021-03-05)
PROC: B2111ZZ Fluoroscopy of Multiple Coronary Arteries using Low Osmolar Contrast (ICD-10-PCS; 2021-03-05)
PROC: B2151ZZ Fluoroscopy of Left Heart using Low Osmolar Contrast (ICD-10-PCS; 2021-03-05)
PROC: 0TT20ZZ Resection of Bilateral Kidneys, Open Approach (ICD-10-PCS; 2021-03-06)
PROC: 0FT00ZZ Resection of Liver, Open Approach (ICD-10-PCS; 2021-03-06)
PROC: 02TN0ZZ Resection of Pericardium, Open Approach (ICD-10-PCS; 2021-03-06)
PROC: 0BTM0ZZ Resection of Bilateral Lungs, Open Approach (ICD-10-PCS; principal; 2021-03-06 18:00)
CPT/HCPCS: 93460; G0269; 36415; 36600; 71045; 80048; 80076; 81001; 82150; 82803; 82805; 82962; 82977; 83036; 83615; 83690; 83735; 84100; 84484; 85025; 85027; 85384; 85610; 85730; 86850; 86900; 86901; 86920; 87040; 87070; 87077; 87086; 87186; 87205; 87426; 93005; 93306; 93308; 93458; 94003; A4209; A4213; A4322; A4556; A4930; A6255; C1773; C1892; J0360; J1815; J1940; J2370; J2543; J2597; J3370; J3490; J7040; J7050; J7060; P9045; P9046; U0003; U0005; G0378; J7030